=== PATIENT | female | born 1965 | race Asian ===

== ENCOUNTER 2023-10-16 08:11 | Outpatient (CLI) | payer BC, SELFPAY ==
--- NOTE | ~2023-10-16 | DEXA_ITS ---
Bone Density Report Name: KEHINDE RIVERA Age: 57 Sex: Female Ethnicity: Date of : 1965 Indication: postmenopausal; screening for osteoporosis; height loss; Referring Provider: QUYNH SHEEHAN Study: Bone densitometry was performed. Exam Date: October 16, 2023 Accession number: [id number] Bone Density: Region BMD T-score Z-score Classification AP Spine (L1-L4) 1.043 0.0 1.3 Normal Femoral Neck (Left) 0.703 -1.3 -0.1 Osteopenia Total Hip (Left) 0.782 -1.3 -0.4 Osteopenia Femoral Neck (Right) 0.664 -1.7 -0.4 Osteopenia Total Hip (Right) 0.799 -1.2 -0.3 Osteopenia Total Hip Mean 0.791 -1.3 -0.4 Osteopenia World Health Organization criteria for BMD impression classify patients as: Normal (T-score at or above -1.0), Osteopenia (T-score between -1.0 and -2.5), or Osteoporosis (T-score at or below -2.5). 10-year Fracture Risk(1): Major Osteoporotic Fracture 4.2% Hip Fracture 0.4% Reported Risk Factors: [place] (), Neck BMD=0.664, BMI=23.2 (1) FRAX(R) Version 3.08. Fracture probability calculated for an untreated patient. Fracture probability may be lower if the patient has received treatment. Previous Exams: Region Exam Age BMD T-score BMD Change BMD Change Date g/cm2 vs Baseline vs Previous AP Spine(L1-L4) 10/16/2023 57 1.043 0.0 -0.125* -0.125* 09/24/2012 46 1.167 1.1 Total Hip(Left) 10/16/2023 57 0.782 -1.3 -0.169* -0.169* 09/24/2012 46 0.951 0.1 Total Hip(Right) 10/16/2023 57 0.799 -1.2 -0.164* -0.164* 09/24/2012 46 0.962 0.2 *Denotes significance at 95% confidence level, LSC for AP Spine = 0.022 g/cm2, LSC for Total Hip = 0.027 g/cm2 Clinical Information Provided by Patient: Has used the following medications: Vitamin D, Calcium, MTV Patient maximum height was 61 Menopause Age: 51 Drinks caffeinated beverages Onset of menses at age 9 Number of children 2 Impression: The patient has low bone mass, based on the Right Femoral Neck T-score. The patient has an estimated ten-year risk of hip fracture of 0.4% and an estimated ten-year risk of major fracture of 4.2%, based on the WHO FRAX algorithm. The BMD for the AP Spine(L1-L4) decreased, changing by -0.125 since the last DXA exam. The BMD for the Total Hip(Left) decreased, changing by -0.169 since the last DXA exam. The BMD for the Total Hip(Right) decreased, changing by -0.164 since the last DXA exam.
--- NOTE | ~2023-10-16 | MM_ITS ---
EXAMINATION: MM screening marcos BI w krystal HISTORY: Screening TECHNIQUE: Craniocaudal and mediolateral oblique 3-D tomosynthesis images were obtained and synthetic 2-D images were generated. CAD analysis was submitted and interpreted. COMPARISON: Comparison to multiple prior studies sequentially, with oldest reviewed study dated 04/2015. BREAST PARENCHYMAL COMPOSITION: There are scattered areas of fibroglandular density. FINDINGS: There is no evidence of suspicious mass, calcification, or architectural distortion to sugg est malignancy in either breast. There has been no suspicious interval change. IMPRESSION: 1. No mammographic evidence of malignancy. 2. Recommend routine screening mammography in one year. BI-RADS Category 1: Negative Reviewed, dictated and finalized at location A. ORADIOLOGIST
== END 2023-10-16 08:12 ==
PROVIDERS: PCP Obstetrics & Gynecology; Visit Provider Emergency Medicine
DX: Z12.31 Encounter for screening mammogram for malignant neoplasm of breast (principal); Z78.0 Asymptomatic menopausal state; M85.89 Other specified disorders of bone density and structure, multiple sites
CPT/HCPCS: 77063; 77067; 77080